=== PATIENT | female | born 1935 | race Caucasian/White ===

== ENCOUNTER 2016-10-14 03:44 | Emergency (ER) | payer MEDICARE, BC | END 2016-10-14 05:58 | disposition critical access hospital (66) | LOC: ER 03:44 | DX: I48.91 Unspecified atrial fibrillation (principal); R07.89 Other chest pain; R06.02 Shortness of breath; R42 Dizziness and giddiness; I10 Essential (primary) hypertension; K21.9 Gastro-esophageal reflux disease without esophagitis; H40.9 Unspecified glaucoma | CPT/HCPCS: 96361; 96374 ==

== ENCOUNTER 2016-10-14 03:44 | Observation (INO) | payer MEDICARE, BC ==
[~2016-10-14] VITALS: Ht 160 cm; Wt 55.9 kg
== END 2016-10-15 15:25 | disposition home or self-care (01) ==
LOC: ER 03:44 → MED 05:59
PROVIDERS: ADMIT Internal Medicine
DX: I48.91 Unspecified atrial fibrillation (principal); E87.6 Hypokalemia; I10 Essential (primary) hypertension; K21.9 Gastro-esophageal reflux disease without esophagitis; Z79.82 Long term (current) use of aspirin; Z79.899 Other long term (current) drug therapy
CPT/HCPCS: 36415; 93306; 96372; G0378; J1650